=== PATIENT | male | born 1985 | race African-American/Black ===

== ENCOUNTER 2019-02-28 14:35 | Inpatient (IN) | payer OTHER ==
--- NOTE | 2019-02-28 15:15 | PDOC ---
History of Present Illness - General Chief Complaint: Weakness Stated Complaint: Weakness Time Seen by Provider: 02/28/19 14:50 History Source: Patient Exam Limitations: No Limitations - History of Present Illness Initial Comments: 33 year old male with PMH NIDDM, dengue fever presented to ED for body aches, runny nose, headache, chest pain, cough since 0300 today. Pt reported positive sick contact - daughter. Pt denied palpitations, abdominal pain, nausea, vomiting, sputum production. Pt reported last week he missed a few days of his diabetes medication, he did not have an answer as to why, reporting he has enough medication. Pt is traveling from [place], will return in April, no PCP in the area. Family member at bedside reported that earlier today pt was hallucinating in that he did not recognize people in the house. Allergies: NKDA Past History - Past Medical History Allergies/Adverse Reactions: Allergies Allergy/AdvReac Type Severity Reaction Status Date / Time No Known Allergies Allergy Verified 02/28/19 15:36 Home Medications: Ambulatory Orders Amlodipine Besylate [Norvasc -] 10 mg PO DAILY 03/01/19 Docusate Sodium [Colace] 100 mg PO DAILY 03/01/19 Hydrocortisone Acetate [Anucort-Hc] 25 mg RC BID 03/01/19 Lisinopril 20 mg PO DAILY 03/01/19 metFORMIN HCL [Metformin HCl] 500 mg PO BID 03/01/19 Cefuroxime Axetil [Ceftin -] 500 mg PO Q12H #10 tablet 03/02/19 Review of Systems - Review of Systems Able to Perform ROS?: Yes Comments:: General: admitted to generalized weakness. denied fever, chills, body aches. HEENT: denied sore throat, rhinorrhea, ear pain. Cardiovascular: admitted to chest pain. denied palpitations, syncope, diaphoresis. Respiratory: admitted to cough. denied shortness of breath, sputum production, hemoptysis. Gastrointestinal: denied abdominal pain, nausea, vomiting, diarrhea, constipation, blood in stool. Genitourinary: denied dysuria, increased urinary frequency, hematuria, urinary incontinence, flank pain. Back: denied back pain. Musculoskeletal: denied joint pain, muscle pain, joint swelling. Neurological: admitted to headache, hallucinations. denied dizziness, numbness, tingling, weakness. Integumentary: denied rash, laceration, abrasion. Hematologic/Lymphatic: denied bruising or bleeding. *Physical Exam - Physical Exam Comments: Constitutional: Well-nourished, Well-developed, appearing stated age. obese. HEENT: head is normocephalic, atraumatic. EOMI. PERRLA. large tongue. TM no erythema, no bulging bilaterally. Neck: supple. Full ROM. Cardiovascular: regular heart rhythm. no murmurs. no pericardial friction rub. Respiratory: clear to auscultation bilaterally. no crackles, rhonchi or wheezing. no stridor. Gastrointestinal: soft, nontender. normal bowel sounds. no rebound, guarding, masses. Extremities: peripheral pulses intact. no lower extremity edema. Neurological: CN 2-12 grossly intact. moves all four extremities. Psych: awake, alert, oriented x3. follows commands. answers questions appropriately. Procedures - Lumbar Puncture Indication: Meningitis, Fever, Headache CT Scan: Yes Betadine Prep: Yes Position: Right lateral decubitus Site: L5-S1 Local Anesthesia: 1% Lidocaine with epi Volume(ml): 10 Lumbar Puncture Kit: Adult Needle Size(gauge): 22 (XL) Traumatic Tap: No Tubes Obtained: 0 (No CSF obtained) Progress: Performed with Dr. Hicks, PGY3 and Dr. Farrell, Attending Physician. ED Treatment Course - LABORATORY CBC & Chemistry Diagram: 03/02/19 06:00 03/02/19 06:00 Medical Decision Making - Medical Decision Making 02/28/19 15:46 33 year old male with above PMH presented to ED for headache with hallucinations , chest pain, body aches. Initial Vital Signs Temp Pulse Resp BP Pulse Ox 100.2 F H 106 H 18 135/75 100 02/28/19 14:35 02/28/19 14:35 02/28/19 14:35 02/28/19 14:35 02/28/19 14:35 Febrile. Tachycardia. No tachypnea. Mild hypertension. No hypoxia on room air. Labs ordered: CBC, CMP, acetone, troponin, coags, UA/UC, blood cultures, influenza rapid Imaging ordered: CXR, CT head Medications ordered: normal saline bolus 1000 cc once, asa 162 PO chew once, tylenol IV, vancomycin 1 g IV, ceftraixone 2g IV once, acyclovir 1200 mg IV once Consent for LP obtained by Dr. Butcher, PGY3 and myself. 02/28/19 16:46 CBC WBC 6.7 K/mm3 (4.0-10.0) 02/28/19 15:30 RBC 5.20 M/mm3 (4.00-5.60) 02/28/19 15:30 Hgb 13.9 GM/dL (11.7-16.9) 02/28/19 15:30 Hct 40.9 % (35.4-49) 02/28/19 15:30 MCV 78.6 fl (80-96) L 02/28/19 15:30 MCH 26.7 pg (25.7-33.7) 02/28/19 15:30 MCHC 34.0 g/dl (32.0-35.9) 02/28/19 15:30 RDW 15.0 % (11.9-15.9) 02/28/19 15:30 Plt Count 189 K/MM3 (134-434) 02/28/19 15:30 MPV 10.5 fl (7.5-11.1) 02/28/19 15:30 Absolute Neuts (auto) 5.2 K/mm3 (1.5-8.0) 02/28/19 15:30 Neutrophils % 78.8 % (42.8-82.8) 02/28/19 15:30 Lymphocytes % 5.0 % (8-40) L 02/28/19 15:30 Monocytes % 15.4 % (3.8-10.2) H 02/28/19 15:30 Eosinophils % 0.6 % (0-4.5) 02/28/19 15:30 Basophils % 0.2 % (0-2.0) 02/28/19 15:30 Nucleated RBC % 0 % (0-0) 02/28/19 15:30 No leukocytosis. No anemia. CMP POC Glucometer 124 UNITS (80-120) 02/28/19 16:39 Magnesium 2.1 mg/dL (1.8-2.4) 02/28/19 15:30 02/28/19 17:13 CMP Sodium 139 mmol/L (136-145) 02/28/19 15:30 Potassium 4.6 mmol/L (3.5-5.1) 02/28/19 15:30 Chloride 104 mmol/L (98-107) 02/28/19 15:30 Carbon Dioxide 24 mmol/L (21-32) 02/28/19 15:30 Anion Gap 10 MMOL/L (8-16) 02/28/19 15:30 BUN 11.0 mg/dL (7-18) 02/28/19 15:30 Creatinine 0.9 mg/dL (0.55-1.3) 02/28/19 15:30 Est GFR (CKD-EPI)AfAm 130.52 02/28/19 15:30 Est GFR (CKD-EPI)NonAf 112.62 02/28/19 15:30 POC Glucometer 124 UNITS (80-120) 02/28/19 16:39 Random Glucose 137 mg/dL (74-106) H 02/28/19 15:30 Lactic Acid 2.4 mmol/L (0.4-2.0) H* 02/28/19 16:31 Calcium 9.0 mg/dL (8.5-10.1) 02/28/19 15:30 Magnesium 2.1 mg/dL (1.8-2.4) 02/28/19 15:30 Total Bilirubin 1.0 mg/dL (0.2-1) 02/28/19 15:30 AST 28 U/L (15-37) 02/28/19 15:30 ALT 21 U/L (13-61) 02/28/19 15:30 Alkaline Phosphatase 58 U/L (45-117) 02/28/19 15:30 Total Protein 7.7 g/dl (6.4-8.2) 02/28/19 15:30 Albumin 3.9 g/dl (3.4-5.0) 02/28/19 15:30 No electrolyte abnormalities. No PAULA. Mild lactic acidosis. -IVF running No transaminitis 02/28/19 17:25 CXR report: Exam Date: 02/28/19 Status: ARIN [place] [id number] Unit Number: [id number] EXAM#: TYPE/EXAM: RESULT: [id number] RAD/CHEST X-RAY PORTABLE* Chest: Chest pain Single AP view of the chest reveals a normal heart, prominent knob, prominent right hilar markings and clear lung henriquez. The angles are sharp. The bones and soft tissues are intact. Impression: No acute chest pathology. Reported By: Hero Chaves MD 02/28/19 1716 02/28/19 17:41 Rapid influenza testing negative. Troponin undetectable. 02/28/19 17:46 CT head report: Name: MATTHEW GUADARRAMA DEPARTMENT OF RADIOLOGY Phys: JoseraindeniseNigel RESIDENT : 1985 Age: 33 Sex: M [facility] Acct: [id number] Loc: [facility] [address] [place] [address] Exam Date: 02/28/19 Status: REG ARIN [place] [id number] Unit Number: [id number] ACCESSION # : [id number] EXAM#: TYPE/EXAM: RESULT: CT/HEAD CT WITHOUT CONTRAST Cranial CT without contrast Clinical information: hallucinations Multiplanar imaging was performed. Intravenous contrast was not administered. No prior imaging studies are available at this facility for direct comparison. No intracranial hemorrhage is seen. There is no extra-axial fluid collection. No gross mass lesion is visualized on noncontrast imaging. There is no definite abnormal intra-axial attenuation. The ventricles and cisterns appear unremarkable. An expanded at least partly empty sella turcica is noted. No calvarial defect is seen. Impression: No CT evidence of acute intracranial pathology. An expanded at least partly empty sella turcica is noted. Endocrine evaluation is suggested. Reported By: Santos Perla MD 02/28/19 1744 02/28/19 19:00 LP unsuccessful in obtaining CSF. Pt is being treated empirically for meningitis. Pt to be admitted for suspected meningitis. No PCP. 02/28/19 19:08 Pt signed out to Dr. Calzada. Pending admission. Dr. Lopez to be called. *DC/Admit/Observation/Transfer Diagnosis at time of Disposition: Fever - Discharge Dispostion Disposition: HOME Condition at time of disposition: Stable Decision to Admit order: Yes - Referrals - Patient Instructions - Post Discharge Activity
[2019-02-28] MEDS ORDERED: ACETAMINOPHEN 1000 MG/100 ML VIAL (NON FORMULARY) IVPB ONE (15:41)
[2019-02-28] MEDS ORDERED: SODIUM CHLORIDE 1,000 ML IV STA ×2 (15:41→17:37)
[2019-02-28] MEDS ORDERED: ASPIRIN 81 MG CHEWABLE TABLETS PO ONE (15:47)
[2019-02-28] MEDS ORDERED: ACETAMINOPHEN INJECTION 100 ML IVPB ONE (16:20)
[2019-02-28 16:22] LABS: BASO % 0.2 % (0-2.0); EOS % 0.6 % (0-4.5); HEMATOCRIT 40.9 % (35.4-49); HEMOGLOBIN 13.9 GM/dL (11.7-16.9); MCH 26.7 pg (25.7-33.7); MEAN CELL VOLUME 78.6 fl (80-96); MEAN PLT VOLUME 10.5 fl (7.5-11.1); MONO % 15.4 % (3.8-10.2); NEUT % 78.8 % (42.8-82.8); PLATELET COUNT 189 K/MM3 (134-434); WHITE BLOOD COUNT 6.7 K/mm3 (4.0-10.0)
[2019-02-28] MEDS ORDERED: CEFTRIAXONE 2 GM in DEXTROSE 5%-WATER - 100 ML IVPB ONE (16:29)
[2019-02-28] MEDS ORDERED: ACYCLOVIR 500 MG (50MG/ML) VIAL IVPUSH ONE (16:30)
[2019-02-28] MEDS ORDERED: VANCOMYCIN 1,000 MG in DEXTROSE 5%-WATER - 250 ML IVPB ONE (16:30)
[2019-02-28] MEDS ORDERED: DEXAMETHASONE SOD PHOSPHATE 10 MG/1 ML VIAL IVPUSH ONE (16:30)
[2019-02-28 16:54] LABS: ALBUMIN 3.9 g/dl (3.4-5.0); ALK PHOS 58 U/L (45-117); ANION GAP 10 MMOL/L (8-16); CHLORIDE 104 mmol/L (98-107); CO2 24 mmol/L (21-32); CREATININE 0.9 mg/dL (0.55-1.3); GLUCOSE,RANDOM 137 mg/dL (74-106); POTASSIUM 4.6 mmol/L (3.5-5.1); SGOT/AST 28 U/L (15-37); SGPT/ALT 21 U/L (13-61); SODIUM 139 mmol/L (136-145); TOT PROT 7.7 g/dl (6.4-8.2)
[2019-02-28 16:59] LABS: INR 1.23 (0.83-1.09); PROTHROMBIN TIME (PATIENT) 14.5 SEC (9.7-13.0)
--- NOTE | 2019-02-28 16:59 | PDOC ---
Documentation entered by Terrell Martino SCRIBE, acting as scribe for Swetha Farrell MD. Swetha Farrell MD: This documentation has been prepared by the Salena campos Elijah, SCRIBE, under my direction and personally reviewed by me in its entirety. I confirm that the documentation accurately reflects all work, treatment, procedures, and medical decision making performed by me. Attending Attestation - Resident Resident Name: Madelin Blake - ED Attending Attestation I have performed the following: I have examined & evaluated the patient, The case was reviewed & discussed with the resident, I agree w/resident's findings & plan, Exceptions are as noted - HPI HPI: 02/28/19 16:39 Patient is a 33 year old male with a significant past medical history of NIDDM and HTN who presents to the ED via EMS with a headache, chest pain, body aches, cough and runny nose which began x13 hours ago. Patient reports that he was woken up secondary to the headache and when he got up to walk to the bathroom his body aches began. He states the headache is mostly in the front of his head and has gotten gradually worse during the day. This morning, the family reports that the patient had a hallucination where he asked, Who are these people although no one was there. Patients mother noted that his Blood sugar was elevated to the 400s this morning as well as not seeming like his normal self. Patient was reported to be at his baseline yesterday prior to going to sleep. Patients 3 year old daughter was said to be sick with a cold and patient traveled to [place] in December. Of note, he was hospitalized for dengue fever in [place] 6 months ago, but recovered. Denies focal weakness, numbness, dizziness, visual sxs, sob, abd pain, n/v/d, rashes, LE edema. Allergies: NKA - Physicial Exam PE: 02/28/19 16:39 GENERAL: Awake, alert, and fully oriented, in no acute distress. HEAD: No signs of trauma EYES: PERRLA, EOMI, sclera anicteric, conjunctiva clear ENT: Auricles normal inspection, hearing grossly normal, nares patent, oropharynx clear without exudates. Moist mucosa NECK: +pain when asked to flex neck LUNGS: Breath sounds equal, clear to auscultation bilaterally. No wheezes, and no crackles HEART: Regular rate and rhythm, normal S1 and S2, no murmurs, rubs or gallops ABDOMEN: Soft, nontender, normoactive bowel sounds. No guarding, no rebound. No masses EXTREMITIES: Normal range of motion, no edema. No cords, erythema, or tenderness NEUROLOGICAL: Cranial nerves II through XII intact. 5/5 strength and sensation in all extremities, Normal speech, normal gait, normal cerebellar function SKIN: Warm, Dry, normal turgor, no rashes or lesions noted - Medical Decision Making 02/28/19 16:58 33yo M prsents to the ED with fever, cough, bodyaches, headache, stiff neck DDx includes meningitis vs viral syndrome Plan for labs, CTH, CXR Will cover empirically for meningitis with vanc/ctx, acyclovir preceded by decadron Will pursue LP after CTH Pt on droplet iso 02/28/19 18:30 CXR Flu negative CTH negative for acute pathology Pt consented for LP, risks and benefits discussed with pt, daughter and aunt, all questions answered LP was attempted at 2 spaces unsuccessfully LP difficult 2/2 body habitus Decision made to abort after 2 attempts, pt can possibly have it done under IR guidance Case discussed with Dr. Lopez for admission who requests ICU c/s, she accepts pt for admission ICU team to evaluate Heart Score/ECG Review #1 02/28/19 18:20 Twelve-lead EKG was performed and reviewed by me. Normal sinus rhythm, rate 93. Normal axis. No ST elevations. T wave flattening in leads 3, aVF and V6. No previous EKGs to compare.
[2019-02-28] MEDS ORDERED: ACYCLOVIR 500 MG (50MG/ML) VIAL IVPB ONE (17:45)
[2019-02-28] MEDS ORDERED: VANCOMYCIN 1 GRAM (PRE-DOCKED) 1,000 MG/250 ML BAG IVPB ONE (17:51)
[2019-02-28] MEDS ORDERED: DEXAMETHASONE SOD PHOSPHATE 10 MG/1 ML VIAL ONE (17:51)
[2019-02-28] MEDS ORDERED: CEFTRIAXONE 1 GM/50 ML BAG ONE (17:51)
[2019-02-28] MEDS ORDERED: WATER IVPB ONE ×2 (18:00)
[2019-02-28] MEDS ORDERED: ACYCLOVIR IVPB ONE ×2 (18:00)
[2019-02-28] MEDS ORDERED: DEXTROSE 5% IVPB ONE ×2 (18:00)
[2019-02-28 18:33] LABS: ACETONE SERUM NEGATIVE (NEGATIVE)
[2019-02-28] MEDS ORDERED: LIDOCAINE HCL 1%, 10 MG/ML (20ML VIAL) ONE (18:34)
--- NOTE | 2019-02-28 19:35 | PDOC ---
*Physical Exam - Vital Signs Last Vital Signs Temp Pulse Resp BP Pulse Ox 101.2 F H 97 H 24 H 142/79 97 02/28/19 18:18 02/28/19 18:06 02/28/19 18:06 02/28/19 18:06 02/28/19 18:06 ED Treatment Course - LABORATORY CBC & Chemistry Diagram: 03/01/19 01:30 03/01/19 01:30 - ADDITIONAL ORDERS Additional order review: Laboratory Results 02/28/19 02/28/19 02/28/19 16:39 16:31 15:30 PT with INR 14.50 H INR 1.23 H PTT (Actin FS) Sodium Potassium Chloride Carbon Dioxide Anion Gap BUN Creatinine Est GFR (CKD-EPI)AfAm Est GFR (CKD-EPI)NonAf POC Glucometer 124 Random Glucose Lactic Acid 2.4 H* Calcium Magnesium Total Bilirubin AST ALT Alkaline Phosphatase Troponin I Total Protein Albumin Acetone, Qual 02/28/19 02/28/19 02/28/19 15:30 15:30 15:30 PT with INR INR PTT (Actin FS) 31.7 Sodium 139 Potassium 4.6 Chloride 104 Carbon Dioxide 24 Anion Gap 10 BUN 11.0 Creatinine 0.9 Est GFR (CKD-EPI)AfAm 130.52 Est GFR (CKD-EPI)NonAf 112.62 POC Glucometer Random Glucose 137 H Lactic Acid Calcium 9.0 Magnesium 2.1 Total Bilirubin 1.0 AST 28 ALT 21 Alkaline Phosphatase 58 Troponin I < 0.02 Total Protein 7.7 Albumin 3.9 Acetone, Qual Negative 02/28/19 02/28/19 16:39 15:30 RBC 5.20 MCV 78.6 L MCHC 34.0 RDW 15.0 MPV 10.5 Neutrophils % 78.8 Lymphocytes % 5.0 L Monocytes % 15.4 H Eosinophils % 0.6 Basophils % 0.2 POC Glucometer 124 - Medications Given in the ED: ED Medications Discontinued Medications Generic Name Dose Route Start Last Admin Trade Name Freq PRN Reason Stop Dose Admin Acetaminophen 1,000 mg 02/28/19 15:41 02/28/19 16:30 Ofirmev Injection - IVPB 02/28/19 15:42 1,000 mg ONCE ONE Administration Aspirin 162 mg 02/28/19 15:47 02/28/19 16:18 Asa - PO 02/28/19 15:48 Not Given ONCE ONE Dexamethasone Sodium Phosphate 10 mg 02/28/19 16:30 02/28/19 18:04 Decadron Injection - IVPUSH 02/28/19 16:31 10 mg ONCE ONE Administration Sodium Chloride 1,000 mls @ 1,000 mls/hr 02/28/19 15:41 02/28/19 18:04 Normal Saline - IV 02/28/19 16:40 1,000 mls/hr ASDIR STA Administration Ceftriaxone Sodium 2 gm/ 100 mls @ 200 mls/hr 02/28/19 16:29 02/28/19 18:04 Dextrose IVPB 02/28/19 16:58 200 mls/hr ONCE ONE Administration Vancomycin HCl 1,000 mg/ 250 mls @ 166.667 mls/hr 02/28/19 16:30 02/28/19 18: 49 Dextrose IVPB 02/28/19 17:59 166.667 mls/hr ONCE ONE Administration Protocol Medical Decision Making - Medical Decision Making 02/28/19 19:[address] Lopez who requested ICU. ICu team consulted. Will come down and see patient. Potential refusal. 03/02/19 00:51 ICU refused patient as found no grounds for ICU placement. Patient awake and alert, aox3, can be managed on med/surg floors. *DC/Admit/Observation/Transfer Diagnosis at time of Disposition: Fever - Discharge Dispostion Condition at time of disposition: Stable - Referrals - Patient Instructions - Post Discharge Activity
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
[2019-02-28] MEDS ORDERED: SODIUM CHLORIDE 1,000 ML IV SCH (21:00)
[2019-02-28] MEDS ORDERED: ACETAMINOPHEN 325 MG TABLET (FP) PO PRN (21:00)
--- NOTE | 2019-02-28 21:03 | HP ---
Admitting History and Physical - Primary Care Physician PCP: Sendy Lopez - Admission History of Present Illness: 33 year old male with PMH NIDDM, dengue fever presented to ED for body aches, runny nose, headache, chest pain, cough since 030 today. Pt reported positive sick contact - daughter. Pt denied palpitations, abdominal pain, nausea, vomiting, sputum production. Pt reported last week he missed a few days of his diabetes medication, he did not have an answer as to why, reporting he has enough medication. Pt is traveling from [place], will return in April, no PCP in the area. Family member at bedside reported that earlier today pt was hallucinating in that he did not recognize people in the house. - Smoking History Smoking history: Never smoked Have you smoked in the past 12 months: No - Alcohol/Substance Use Hx Alcohol Use: No Home Medications - Allergies Allergies/Adverse Reactions: Allergies Allergy/AdvReac Type Severity Reaction Status Date / Time No Known Allergies Allergy Verified 02/28/19 15:36 Physical Examination Vital Signs: Vital Signs Temperature 101.2 F H 02/28/19 18:18 Pulse Rate 97 H 02/28/19 18:06 Respiratory Rate 24 H 02/28/19 18:06 Blood Pressure 142/79 02/28/19 18:06 O2 Sat by Pulse Oximetry (%) 97 02/28/19 18:06 Labs: CBC, BMP 02/28/19 15:30 02/28/19 15:30 Problem List - Problems (1) Fever Code(s): R50.9 - FEVER, UNSPECIFIED Assessment/Plan Laboratory Tests 02/28/19 02/28/19 02/28/19 15:30 15:30 15:30 WBC 6.7 RBC 5.20 Hgb 13.9 Hct 40.9 MCV 78.6 L MCH 26.7 MCHC 34.0 RDW 15.0 Plt Count 189 MPV 10.5 Absolute Neuts (auto) 5.2 Neutrophils % 78.8 Lymphocytes % 5.0 L Monocytes % 15.4 H Eosinophils % 0.6 Basophils % 0.2 Nucleated RBC % 0 PT with INR INR PTT (Actin FS) 31.7 Sodium 139 Potassium 4.6 Chloride 104 Carbon Dioxide 24 Anion Gap 10 BUN 11.0 Creatinine 0.9 Est GFR (CKD-EPI)AfAm 130.52 Est GFR (CKD-EPI)NonAf 112.62 POC Glucometer Random Glucose 137 H Lactic Acid Calcium 9.0 Magnesium Total Bilirubin 1.0 AST 28 ALT 21 Alkaline Phosphatase 58 Troponin I < 0.02 Total Protein 7.7 Albumin 3.9 Acetone, Qual Negative Influenza A (Rapid) Influenza B (Rapid) 02/28/19 02/28/19 02/28/19 15:30 15:30 16:31 WBC RBC Hgb Hct MCV MCH MCHC RDW Plt Count MPV Absolute Neuts (auto) Neutrophils % Lymphocytes % Monocytes % Eosinophils % Basophils % Nucleated RBC % PT with INR 14.50 H INR 1.23 H PTT (Actin FS) Sodium Potassium Chloride Carbon Dioxide Anion Gap BUN Creatinine Est GFR (CKD-EPI)AfAm Est GFR (CKD-EPI)NonAf POC Glucometer Random Glucose Lactic Acid 2.4 H* Calcium Magnesium 2.1 Total Bilirubin AST ALT Alkaline Phosphatase Troponin I Total Protein Albumin Acetone, Qual Influenza A (Rapid) Influenza B (Rapid) 02/28/19 02/28/19 02/28/19 16:39 16:46 19:35 WBC RBC Hgb Hct MCV MCH MCHC RDW Plt Count MPV Absolute Neuts (auto) Neutrophils % Lymphocytes % Monocytes % Eosinophils % Basophils % Nucleated RBC % PT with INR INR PTT (Actin FS) Sodium Potassium Chloride Carbon Dioxide Anion Gap BUN Creatinine Est GFR (CKD-EPI)AfAm Est GFR (CKD-EPI)NonAf POC Glucometer 124 Random Glucose Lactic Acid 1.0 Calcium Magnesium Total Bilirubin AST ALT Alkaline Phosphatase Troponin I Total Protein Albumin Acetone, Qual Influenza A (Rapid) Negative Influenza B (Rapid) Negative Active Medications Generic Name Dose Route Start Last Admin Trade Name Freq PRN Reason Stop Dose Admin Acetaminophen 650 mg 02/28/19 21:00 Tylenol - PO Q6H PRN FEVER Sodium Chloride 1,000 mls @ 75 mls/hr 02/28/19 21:00 Normal Saline - IV ASDIR FAYE
--- NOTE | 2019-02-28 21:14 | PN ---
Teaching Attending Note ATTENDING PHYSICIAN STATEMENT I saw and evaluated the patient. I reviewed the resident's note and discussed the case with the resident. I agree with the resident's findings and plan as documented. SUBJECTIVE: OBJECTIVE: ASSESSMENT AND PLAN:
[2019-02-28 21:19] LABS: PH,URINE 6.5 (5.0-8.0); URINE APPEARANCE CLEAR; URINE BILIRUBIN NEGATIVE (NEGATIVE); URINE COLOR YELLOW; URINE GLUCOSE (UA) NEGATIVE (NEGATIVE); URINE KETONE NEGATIVE (NEGATIVE); URINE LEUK ESTERASE NEGATIVE (NEGATIVE); URINE NITRITE NEGATIVE (NEGATIVE); URINE PROTEIN NEGATIVE (NEGATIVE)
[2019-02-28] MEDS ORDERED: HEPARIN NA (PORCINE) 5,000 UNITS/ML 1ML VIAL SQ SCH (22:00)
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
[2019-03-01 03:41] LABS: BASO % 0.2 % (0-2.0); HEMATOCRIT 40.2 % (35.4-49); HEMOGLOBIN 13.5 GM/dL (11.7-16.9); LYMPH % 8.4 % (8-40); MCHC 33.7 g/dl (32.0-35.9); MEAN CELL VOLUME 80.1 fl (80-96); MONO % 2.9 % (3.8-10.2); NEUT % 88.5 % (42.8-82.8); RBC 5.01 M/mm3 (4.00-5.60); RDW 15.6 % (11.9-15.9); WHITE BLOOD COUNT 5.9 K/mm3 (4.0-10.0)
[2019-03-01 04:04] LABS: COCAINE, UR NEGATIVE ng/ml (CUTOFF=300); METHADONE, UR NEGATIVE ng/ml (CUTOFF=300); OPIATES, URI NEGATIVE ng/ml (CUTOFF=300); PHENCYCLIDINE,URINE NEGATIVE ng/ml (CUTOFF=25); URINE AMPHETAMINES NEGATIVE ng/ml (CUTOFF=500); URINE BARBITURATES NEGATIVE ng/ml (CUTOFF=200); URINE BENZODIAZEPINES NEGATIVE ng/ml (CUTOFF=200)
[2019-03-01 05:02] LABS: ALBUMIN 3.8 g/dl (3.4-5.0); BILIRUBIN,TOTAL 0.7 mg/dL (0.2-1); BLOOD UREA NITROGEN 10.9 mg/dL (7-18); CREATININE 1.1 mg/dL (0.55-1.3); POTASSIUM 4.3 mmol/L (3.5-5.1); TOT PROT 7.5 g/dl (6.4-8.2)
[2019-03-01 05:15] LABS: MEAN PLT VOLUME 10.7 fl (7.5-11.1); PLATELET COUNT 127 K/MM3 (134-434)
[2019-03-01] MEDS: SODIUM CHLORIDE 1,000 ML IV SCH (06:36)
[2019-03-01] MEDS ORDERED: SODIUM CHLORIDE 500 ML IV STA (07:05)
[2019-03-01 07:35] VITALS: BMI 45.3
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
[2019-03-01] MEDS: amLODIPine BESYLATE 10 MG TABLET (FP) PO SCH (09:58)
[2019-03-01] MEDS: LISINOPRIL 20 MG TABLET (FP) PO SCH (09:58)
[2019-03-01] MEDS ORDERED: INSULIN SLIDING SCALE (NOVOLOG) 1 VIAL SQ SCH (11:00)
[2019-03-01] MEDS: INSULIN SLIDING SCALE (NOVOLOG) 1 VIAL SQ SCH ×2 (11:20→17:41)
--- NOTE | 2019-03-01 11:21 | CON.ID ---
Consult Consult Specialty:: infectious diseases Referred by:: Reason for Consultation:: cough fever, - History of Present Illness Chief Complaint: cough fever History of Present Illness: 33 year old male with PMH HTN, NIDDMT2, dengue fever & PNA 6 months ago presents with cough, fevers, chills, headache, and body aches that began at 3am this morning. Patient went to sleep last night feeling fine and awoke this at 3am with a nonproductive cough, feverish, and chills. patient mentions that all this started after he smoked pot with his cousin had a brief episode of hallucination around noon where he was seeing people who were not present and was forming sentences that did not make any sense. This lasted about 30 min and pt no longer feels confused or altered. patient states that now he feels alright according to the patient recent diagnosis of dengue fever ad pneumonia his fever was associated with chills - History Source History Provided By: Patient, Medical Record Limitations to Obtaining History: No Limitations - Alcohol/Substance Use Hx Alcohol Use: No - Smoking History Smoking history: Never smoked Have you smoked in the past 12 months: No Home Medications - Allergies Allergies/Adverse Reactions: Allergies Allergy/AdvReac Type Severity Reaction Status Date / Time No Known Allergies Allergy Verified 02/28/19 15:36 - Home Medications Home Medications: Ambulatory Orders Amlodipine Besylate [Norvasc -] 10 mg PO DAILY 03/01/19 Lisinopril 20 mg PO 03/01/19 metFORMIN HCL [Metformin HCl] 500 mg PO BID 03/01/19 Review of Systems - Review of Systems Constitutional: reports: Chills, Fever Eyes: reports: No Symptoms HENT: reports: No Symptoms Neck: reports: No Symptoms Cardiovascular: reports: No Symptoms Respiratory: reports: Cough Gastrointestinal: reports: No Symptoms Genitourinary: reports: No Symptoms Musculoskeletal: reports: No Symptoms Integumentary: reports: No Symptoms Neurological: reports: No Symptoms Endocrine: reports: No Symptoms Hematology/Lymphatic: reports: No Symptoms Psychiatric: reports: No Symptoms Physical Exam Vital Signs: Vital Signs Temperature 98.6 F 03/01/19 11:03 Pulse Rate 75 03/01/19 11:03 Respiratory Rate 20 03/01/19 11:03 Blood Pressure 132/83 03/01/19 11:03 O2 Sat by Pulse Oximetry (%) 98 02/28/19 21:30 Constitutional: Yes: Well Nourished, No Distress, Calm Cardiovascular: Yes: Regular Rate and Rhythm Respiratory: Yes: Regular, Poor Air Entry (bases) Gastrointestinal: Yes: Normal Bowel Sounds, Soft Musculoskeletal: Yes: WNL Extremities: Yes: WNL Neurological: Yes: Alert, Oriented Psychiatric: Yes: Alert, Oriented Labs: CBC, BMP 03/01/19 01:30 03/01/19 01:30 Imaging - Results Chest X-ray: Report Reviewed, Image Reviewed Cat Scan: Report Reviewed, Image Reviewed Assessment/Plan this patient with multiple medical problems who is admitted with fever ams patient also recently had pneumonia back home i have strong suspicion of drug use plan i would do drug testing on him await for all results to be back continue ceftriaxone monitor closely
--- NOTE | 2019-03-01 11:26 | EKG ---
Test Reason : Blood Pressure : / mmHG Vent. Rate : 093 BPM Atrial Rate : 093 BPM P-R Int : 208 ms QRS Dur : 092 ms QT Int : 344 ms P-R-T Axes : 061 063 030 degrees QTc Int : 427 ms NORMAL SINUS RHYTHM NONSPECIFIC T WAVE ABNORMALITY ABNORMAL ECG NO PREVIOUS ECGS AVAILABLE Confirmed by Cristopher Blanton MD ([id number]) on 03/01/2019 11:25:48 AM Referred By: Confirmed By:Cristopher Blanton MD
[2019-03-01] MEDS ORDERED: DEXTROSE 5%-WATER 100 ML IVPB ONE (15:25)
[2019-03-01] MEDS ORDERED: cefTRIAXone SODIUM 1 GM VIAL ONE (15:25)
[2019-03-01] MEDS: CEFTRIAXONE 1 GM in DEXTROSE 5%-WATER 100 ML IVPB SCH (15:29)
[2019-03-01] MEDS ORDERED: VANCOMYCIN 1 GM in D5W (PRE-DOCKED) 1,000 MG/250 ML IVPB ONE (16:00)
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
[2019-03-02] MEDS: INSULIN SLIDING SCALE (NOVOLOG) 1 VIAL SQ SCH ×2 (06:24→12:41)
[2019-03-02] MEDS: SODIUM CHLORIDE 1,000 ML IV SCH (06:24)
[2019-03-02 06:54] LABS: BASO % 0.4 % (0-2.0); EOS % 0.1 % (0-4.5); HEMATOCRIT 39.9 % (35.4-49); HEMOGLOBIN 13.6 GM/dL (11.7-16.9); LYMPH % 28.5 % (8-40); MCH 26.8 pg (25.7-33.7); MCHC 34.1 g/dl (32.0-35.9); MEAN CELL VOLUME 78.6 fl (80-96); MEAN PLT VOLUME 9.9 fl (7.5-11.1); MONO % 22.6 % (3.8-10.2); NEUT % 48.4 % (42.8-82.8); PLATELET COUNT 199 K/MM3 (134-434); RBC 5.08 M/mm3 (4.00-5.60); RDW 15.4 % (11.9-15.9); WHITE BLOOD COUNT 4.3 K/mm3 (4.0-10.0)
[2019-03-02 07:22] LABS: ALBUMIN 3.7 g/dl (3.4-5.0); BILIRUBIN,TOTAL 0.6 mg/dL (0.2-1); BLOOD UREA NITROGEN 10.6 mg/dL (7-18); CALCIUM 8.8 mg/dL (8.5-10.1); CREATININE 0.8 mg/dL (0.55-1.3); POTASSIUM 3.8 mmol/L (3.5-5.1); TOT PROT 7.2 g/dl (6.4-8.2)
--- NOTE | 2019-03-02 08:34 | PN ---
Progress Note, Physician History of Present Illness: stable no new issues feels much better - Current Medication List Current Medications: Active Medications Acetaminophen (Tylenol -) 650 mg PO Q6H PRN PRN Reason: FEVER Amlodipine Besylate (Norvasc -) 10 mg PO DAILY [facility] Last Admin: 03/01/19 09:58 Dose: 10 mg Ceftriaxone Sodium 1 gm/ (Dextrose) 100 mls @ 200 mls/hr IVPB Q24H [facility]; Protocol Last Admin: 03/01/19 15:29 Dose: 200 mls/hr Sodium Chloride (Normal Saline -) 1,000 mls @ 100 mls/hr IV ASDIR [facility] Last Admin: 03/02/19 06:24 Dose: 100 mls/hr Insulin Aspart (Novolog Vial Sliding Scale -) 1 vial SQ TIDAC [facility]; Protocol Last Admin: 03/02/19 06:24 Dose: Not Given Lisinopril (Prinivil) 20 mg PO DAILY [facility] Last Admin: 03/01/19 09:58 Dose: 20 mg - Objective Vital Signs: Vital Signs Temperature 98.2 F 03/02/19 05:40 Pulse Rate 57 L 03/02/19 05:40 Respiratory Rate 20 03/02/19 05:40 Blood Pressure 126/74 03/02/19 05:40 O2 Sat by Pulse Oximetry (%) 100 03/01/19 21:00 Constitutional: Yes: No Distress, Calm Cardiovascular: Yes: Regular Rate and Rhythm Respiratory: Yes: Regular, CTA Bilaterally Gastrointestinal: Yes: Normal Bowel Sounds, Soft Musculoskeletal: Yes: WNL Extremities: Yes: WNL Neurological: Yes: Alert, Oriented Psychiatric: Yes: Alert, Oriented Labs: CBC, BMP 03/02/19 06:00 03/02/19 06:00 INR, PTT INR 1.23 (0.83-1.09) H 02/28/19 15:30 Assessment/Plan Patient is a 33 year old male with PMH HTN, NIDDMT2, dengue fever & PNA 6 months ago presents with cough, fevers, chills, headache, and body aches that began at 3am this morning. sepsis ams lactic acidosis chest pain obesity plan check lactic acid on the patient continue current mgmt if patient stable can switch to oral augmentin cannot use etoh untill he finishes abx
[2019-03-02] MEDS: amLODIPine BESYLATE 10 MG TABLET (FP) PO SCH (10:10)
[2019-03-02] MEDS: LISINOPRIL 20 MG TABLET (FP) PO SCH (10:10)
--- NOTE | 2019-03-02 13:55 | PN ---
Teaching Attending Note Name of Resident: Juan Alberto Davis ATTENDING PHYSICIAN STATEMENT I saw and evaluated the patient. I reviewed the resident's note and discussed the case with the resident. I agree with the resident's findings and plan as documented. SUBJECTIVE: Patient is feeling well ,no acute events overnight. would like to go home. OBJECTIVE: Vital Signs Temperature 98.3 F 03/02/19 10:21 Pulse Rate 67 03/02/19 10:21 Respiratory Rate 18 03/02/19 10:21 Blood Pressure 149/91 03/02/19 10:21 O2 Sat by Pulse Oximetry (%) 100 03/01/19 21:00 GENERAL: The patient is awake, alert, and fully oriented, in no acute distress. HEAD: Normal with no signs of trauma. EYES: PERRL, extraocular movements intact, sclera anicteric, conjunctiva clear. ENT: Ears normal, oropharynx clear without exudates, moist mucous membranes. NECK: Trachea midline, full range of motion, supple. LUNGS: Breath sounds equal, clear to auscultation bilaterally, no wheezes, no crackles, no accessory muscle use. HEART: Regular rate and rhythm, S1, S2 without murmur, rub or gallop. ABDOMEN: Soft, NT,ND, normoactive bowel sounds, no guarding, no rebound, no hepatosplenomegaly, no masses. EXTREMITIES: 2+ pulses, warm, well-perfused, no edema. NEUROLOGICAL: Cranial nerves II through XII grossly intact. Normal speech, gait is stable . PSYCH: Normal mood, normal affect. SKIN: Warm, dry, normal turgor, no rashes or lesions noted CBCD WBC 4.3 K/mm3 (4.0-10.0) 03/02/19 06:00 RBC 5.08 M/mm3 (4.00-5.60) 03/02/19 06:00 Hgb 13.6 GM/dL (11.7-16.9) 03/02/19 06:00 Hct 39.9 % (35.4-49) 03/02/19 06:00 MCV 78.6 fl (80-96) L 03/02/19 06:00 MCHC 34.1 g/dl (32.0-35.9) 03/02/19 06:00 RDW 15.4 % (11.9-15.9) 03/02/19 06:00 Plt Count 199 K/MM3 (134-434) D 03/02/19 06:00 MPV 9.9 fl (7.5-11.1) 03/02/19 06:00 CMP Sodium 142 mmol/L (136-145) 03/02/19 06:00 Potassium 3.8 mmol/L (3.5-5.1) 03/02/19 06:00 Chloride 108 mmol/L (98-107) H 03/02/19 06:00 Carbon Dioxide 28 mmol/L (21-32) 03/02/19 06:00 Anion Gap 5 MMOL/L (8-16) L 03/02/19 06:00 BUN 10.6 mg/dL (7-18) 03/02/19 06:00 Creatinine 0.8 mg/dL (0.55-1.3) 03/02/19 06:00 Random Glucose 116 mg/dL (74-106) H 03/02/19 06:00 Calcium 8.8 mg/dL (8.5-10.1) 03/02/19 06:00 Total Bilirubin 0.6 mg/dL (0.2-1) 03/02/19 06:00 AST 13 U/L (15-37) L 03/02/19 06:00 ALT 24 U/L (13-61) 03/02/19 06:00 Alkaline Phosphatase 48 U/L (45-117) 03/02/19 06:00 Total Protein 7.2 g/dl (6.4-8.2) 03/02/19 06:00 Albumin 3.7 g/dl (3.4-5.0) 03/02/19 06:00 CARDIAC ENZYMES Troponin I < 0.02 ng/ml (0.00-0.05) 02/28/19 15:30 Current Medications Generic Name Dose Route Start Last Admin Trade Name Freq PRN Reason Stop Dose Admin Acetaminophen 650 mg 02/28/19 21:00 Tylenol - PO Q6H PRN FEVER Amlodipine Besylate 10 mg 03/01/19 10:00 03/02/19 10:10 Norvasc - PO 10 mg DAILY FAYE Administration Ceftriaxone Sodium 1 gm/ 100 mls @ 200 mls/hr 03/01/19 16:00 03/01/19 15:29 Dextrose IVPB 200 mls/hr Q24H FAYE Administration Protocol Sodium Chloride 1,000 mls @ 100 mls/hr 03/01/19 04:35 03/02/19 06:24 Normal Saline - IV 100 mls/hr ASDIR FAYE Administration Insulin Aspart 1 vial 03/01/19 11:00 03/02/19 12:41 Novolog Vial Sliding Scale - SQ 2 units TIDAC FAYE Administration Protocol Lisinopril 20 mg 03/01/19 10:00 03/02/19 10:10 Prinivil PO 20 mg DAILY FAYE Administration Home Medications Medication Instructions Recorded Amlodipine Besylate [Norvasc -] 10 mg PO DAILY 03/01/19 Docusate Sodium [Colace] 100 mg PO DAILY 03/01/19 Hydrocortisone Acetate [Anucort-Hc] 25 mg RC BID 03/01/19 Lisinopril 20 mg PO DAILY 03/01/19 metFORMIN HCL [Metformin HCl] 500 mg PO BID 03/01/19 CT: no acute intracranial pathology. An expanded partly empty sell turcica noted. Endocrine eval suggested. CXR: no acute pathology ASSESSMENT AND PLAN: Patient is a 33 year old male with PMH HTN, NIDDMT2, dengue fever & PNA 6 months ago presents with cough, fevers, chills, headache, and body aches. #Acute viral infection ; extensive w/u was done, patient was on Rocephin , discussed with ID, Dr. Austin agrees with discharge with Ceftin, since most of w/ u is pending, will give him an appointment with Resident's clinic for follow up. #AMS: most due to marijuana, ETOH in conjunction with recent restarting medications. #Empty sella turcica: follow up with Dr. Vera (endocrine) for f/u as an outpatient. #T2DM : continue home meds #HTN: cont home meds: lisinopril 20mg daily, norvasc 10mg daily DVT ppx: Scds
[2019-03-02 14:01] LABS: ANISOCYTOSIS 0; MACROCYTOSIS 0; PLATELET ESTIMATE NORMAL
[2019-03-02 14:11] VITALS: BP 147/78; PULSE 66; TEMP 98.5
[2019-03-02 15:11] LABS: EPSTEIN BARR ANTIBODY IgM <36.0 U/mL (0.0-35.9)
[2019-03-02] MEDS ORDERED: cefTRIAXone SODIUM 1 GM VIAL ONE (15:30)
[2019-03-02] MEDS ORDERED: DEXTROSE 5%-WATER 100 ML IVPB ONE (15:31)
[2019-03-02] MEDS: CEFTRIAXONE 1 GM in DEXTROSE 5%-WATER 100 ML IVPB SCH (15:35)
[2019-03-02] MEDS ORDERED: METOCLOPRAMIDE HCL 10 MG TABLET (FP) PO ONE (16:37)
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
== END 2019-03-02 16:39 | disposition home or self-care (01) | DRG 720 ==
LOC: JER 14:35 → JERBED 18:28 → J8W 23:04
PROVIDERS: ADMIT Internal Medicine; ATTEND Internal Medicine
PROC: 009U3ZX Drainage of Spinal Canal, Percutaneous Approach, Diagnostic (ICD-10-PCS; principal; 2019-02-28)
DX: A41.89 Other specified sepsis (principal); E87.2 Acidosis; E23.6 Other disorders of pituitary gland; B34.9 Viral infection, unspecified; E11.9 Type 2 diabetes mellitus without complications; Z79.84 Long term (current) use of oral hypoglycemic drugs; I10 Essential (primary) hypertension; F12.10 Cannabis abuse, uncomplicated; Z91.14 Patient's other noncompliance with medication regimen; E66.9 Obesity, unspecified; Z68.42 Body mass index [BMI] 45.0-49.9, adult
CPT/HCPCS: 36415; 70450-TC; 71045-TC-FY; 80053; 80307; 81003; 82009; 82962; 83010; 83605; 83615; 83735; 84484; 85025; 85044; 85610; 85651; 85730; 86038; 86140; 86658; 86664; 86665; 86790; 87040; 87086; 87389; 87633; 87804; 93005; 93010; 99285-25; J0131; J1100; J7030

== ENCOUNTER 2024-07-13 20:33 | Emergency (ER) | payer SELFPAY ==
[2024-07-13 20:53] VITALS: BP 155/93; PULSE 98; RESP 18; TEMP 101.7; BMI 29.7
[2024-07-13] MEDS ORDERED: IBUPROFEN 400 MG TABLET (FP) PO ONE (23:41)
[2024-07-13] MEDS ORDERED: OSELTAMIVIR PHOSPHATE 75 MG CAPSULE ONE (23:46)
[2024-07-13] MEDS: IBUPROFEN 400 MG TABLET (FP) PO ONE (23:47)
[2024-07-13] MEDS: OSELTAMIVIR PHOSPHATE 75 MG CAPSULE PO ONE (23:47)
== END 2024-07-14 00:03 | disposition home or self-care (01) ==
LOC: JERFT 20:33 → JER 20:33 → JERFT 07-14 00:03
DX: J10.1 Influenza due to other identified influenza virus with other respiratory manifestations (principal); M79.10 Myalgia, unspecified site; R09.81 Nasal congestion; R50.9 Fever, unspecified; R05.9 Cough, unspecified; R42 Dizziness and giddiness; R53.83 Other fatigue; R00.0 Tachycardia, unspecified; Z20.822 Contact with and (suspected) exposure to COVID-19
CPT/HCPCS: 0241U-QW; 99283-25